=== PATIENT | female | born 1960 | race African-American/Black ===

== ENCOUNTER 2017-06-17 03:25 | Emergency (ER) | payer OTHER ==
[2017-06-17] MEDS ORDERED: Morphine 2 mg/2ml in 0.9% NaCl PF SYRINGE ONE (04:48)
[2017-06-17] MEDS ORDERED: Morphine 2 MG/ML SYRINGE ONE (04:50)
[2017-06-17 04:53] LABS: ALT (SGPT) 12 U/L (8-55); AST (SGOT) 11 U/L (5-34); Albumin 3.6 g/dL (3.5-5.0); Alkaline Phosphatase 77 U/L (40-150); Anion Gap 11 mmol/L (10-20); BUN (Urea Nitrogen) 22 mg/dL (9.8-20.1); Bilirubin, Total 0.2 mg/dL (0.2-1.2); Calc. Creatinine Clearance 0 mL/min (70-130); Calcium 9.1 mg/dL (7.8-10.44); Carbon Dioxide 24 mmol/L (22-29); Chloride 108 mmol/L (98-107); Estimated GFR-MDRD 58; Globulin 3.3 g/dL (2.4-3.5); Glucose 117 mg/dL (70-105); Potassium 3.9 mmol/L (3.5-5.1); Protein, Total 6.9 g/dL (6.0-8.3); Sodium 139 mmol/L (136-145)
[2017-06-17 04:56] LABS: #Eosinphils 0.1 thou/uL (0.0-0.7); #Lymphocytes 1.6 thou/uL (1.20-3.40); #Monocytes 0.2 thou/uL (0.11-0.59); #Neutrophils 2.5 thou/uL (1.40-6.50); %Basophils 0.7 % (0.0-1.0); %Eosinophils 2.6 % (0.0-10.0); %Lymphocytes 35.1 % (21.0-51.0); %Monocytes 5.2 % (0.0-10.0); %Neutrophils 56.5 % (42.0-75.0); CKMB 1.3 ng/mL (0-6.6); Hemoglobin 12.3 g/dL (12.0-16.0); Mean Corpuscular HGB CONC 31.9 g/dL (32.0-36.0); Mean Corpuscular Hemoglobin 26.7 pg (27.0-31.0); Mean Corpuscular Volume 83.6 fl (81.0-99.0); Mean Platelet Volume 9.1 fL (7.4-10.4); Platelet Count 215 thou/uL (130-400); RBC Distribution Width 12.7 % (11.5-14.5); Troponin I Less than 0.010 ng/mL (< 0.028); White Blood Cell (WBC) Count 4.4 thou/uL (4.8-10.8)
[2017-06-17 05:35] LABS: Bilirubin Negative (Negative); Blood, Urine Negative (Negative); Clarity CLOUDY (Clear); Glucose, Urine (Dipstick) Negative (Negative); Leukocyte Moderate (Negative); Nitrite Negative (Negative); Protein, Urine (Dipstick) Trace mg/dL (Neg-Trace); Specific Gravity, Urine 1.019 (1.002-1.036); Urobilinogen 0.2 mg/dL (0.2-1.0)
[2017-06-17 05:37] LABS: Bacteria/HPF 1+ HPF (None Seen); Hyaline Casts/LPF 0-3 HYALINE CAST LPF (0-3 Hyaline); Pathc Cast-AUWi Flag 0.13 (0-2.49); RBC/HPF 0-3 HPF (0-3); WBC/HPF 21-50 HPF (0-3)
[2017-06-17] MEDS ORDERED: Acetaminophen 500 MG TAB ONE (06:48)
--- NOTE | 2017-06-17 08:43 | CT ---
PRELIMINARY REPORT/[facility]/EMERGENCY AFTER HOURS PROCEDURE: EXAM: CT Abdomen and Pelvis With Intravenous Contrast CLINICAL HISTORY: 57 years old, female; Pain; Abdominal pain; Generalized TECHNIQUE: Axial computed tomography images of the abdomen and pelvis with intravenous contrast. Coronal reformatted images were created and reviewed. CONTRAST: 7 mL of ISOVUE administered intravenously. COMPARISON: No relevant prior studies available. FINDINGS: Lower thorax: No acute findings. ABDOMEN: Liver: Subcentimeter hypodensity posteriorly in the right lobe. Otherwise unremarkable. Gallbladder and bile ducts: Cholecystectomy. Pancreas: Normal. Spleen: Subcentimeter nonspecific splenic hypodensity. Adrenals: Normal. Kidneys and ureters: Normal. Stomach and bowel: Mild apparent mucosal prominence along the ascending and transverse colon for degr ee of distention versus adherent stool. No surrounding inflammatory changes appreciated. No evidence of obstruction. Appendix: No findings to suggest acute appendicitis. PELVIS: Bladder: Unremarkable. Reproductive: Unremarkable. ABDOMEN and PELVIS: Intraperitoneal space: No free air. No significant fluid collection. Bones/joints: Unremarkable. No acute fracture. Soft tissues: Unremarkable. Vasculature: Unremarkable. Lymph nodes: Unremarkable. No enlarged lymph nodes. IMPRESSION: Questionable mucosal prominence along the proximal colon may represent mild colitis. Otherwise unrema rkable. Thank you for allowing us to participate in the care of your patient. Dictated and Authenticated by: Nam Gr MD 06/17/2017 6:30 AM Central Time ([place] & [place]) FINAL REPORT CT ABDOMEN AND PELVIS: Date: 06/17/17 COMPARISON: 11/15/16. HISTORY: Left lower quadrant pain. FINDINGS: I agree with the preliminary report given by Topher. The imaged lung bases are unremarkable. Cholecyste ctomy clips are present. There is no free intraperitoneal air or fluid seen. The liver, spleen, pancreas, adrenal glands, and kidneys appear grossly unremarkable. No evidence for bowel obstruction. Appendix appears within normal limits. As mentioned in the preliminary [facility] report, there is questionable mucosal prominence along the proxi mal colon which may signify mild colitis. There is sigmoid diverticulosis with no evidence for signif icant diverticulitis. No acute osseous abnormality. Scattered atherosclerotic calcifications of the infrarenal abdominal ao rta noted. IMPRESSION: Questionable mild colitis. No evidence for bowel obstruction, free intraperitoneal air, or abscess. D iverticulosis of sigmoid colon noted. POS: [facility]
[2017-06-17] MEDS ORDERED: ISOVUE-370 76%-LOCM 1 ML ONE (15:39)
== END 2017-06-17 06:53 | disposition home or self-care (01) ==
LOC: ERS 03:25
DX: K52.9 Noninfective gastroenteritis and colitis, unspecified (principal); N39.0 Urinary tract infection, site not specified; E78.5 Hyperlipidemia, unspecified; I10 Essential (primary) hypertension; F32.9 Major depressive disorder, single episode, unspecified; F41.9 Anxiety disorder, unspecified; Z79.899 Other long term (current) drug therapy
CPT/HCPCS: 36415; 74177; 80053; 81003; 81015; 82553; 83605; 84484; 85025; 93005; 96374; J2270

== ENCOUNTER 2022-12-29 17:17 | Emergency (ER) | payer OTHER ==
[2022-12-29] MEDS ORDERED: Famotidine 20 MG TAB ONE (19:05)
[2022-12-29] MEDS ORDERED: methylPREDNISolone Sod Succ/PF 125 MG/2 ML VIAL ONE (19:05)
== END 2022-12-29 19:31 | disposition home or self-care (01) ==
LOC: ERS 17:17
DX: T78.40XA Allergy, unspecified, initial encounter (principal); E11.9 Type 2 diabetes mellitus without complications; E78.00 Pure hypercholesterolemia, unspecified; I10 Essential (primary) hypertension
CPT/HCPCS: 36416; 96372; 99283; J2930

== ENCOUNTER 2023-02-24 08:57 | Outpatient (CLI) | payer OTHER | END 2023-02-24 08:58 | disposition home or self-care (01) | LOC: RAD 08:57 | PROVIDERS: ATTEND Family Medicine | DX: M25.561 Pain in right knee (principal); M25.562 Pain in left knee; G89.29 Other chronic pain; M47.816 Spondylosis without myelopathy or radiculopathy, lumbar region; M17.0 Bilateral primary osteoarthritis of knee | CPT/HCPCS: 72100 ==

== ENCOUNTER 2023-05-25 11:04 | Emergency (ER) | payer OTHER ==
[2023-05-25 12:04] LABS: SARS-CoV-2 NAA Rapid Test Not Detected (NotDetected)
== END 2023-05-25 11:22 | disposition home or self-care (01) ==
LOC: ERS 11:04
DX: B34.9 Viral infection, unspecified (principal); E78.00 Pure hypercholesterolemia, unspecified; I10 Essential (primary) hypertension; E11.9 Type 2 diabetes mellitus without complications; Z79.899 Other long term (current) drug therapy
CPT/HCPCS: 99283

== ENCOUNTER 2023-07-20 08:37 | Emergency (ER) | payer MEDICAID, OTHER ==
[2023-07-20] MEDS ORDERED: Ketorolac Tromethamine 30 MG (1 mL) VIAL ONE (10:42)
[2023-07-20] MEDS ORDERED: Prochlorperazine 10 MG/2 ML VIAL ONE (10:42)
[2023-07-20] MEDS ORDERED: diphenhydrAMINE 50 MG/ML VIAL ONE (11:37)
== END 2023-07-20 08:40 | disposition home or self-care (01) ==
LOC: ERS 08:37
DX: G43.909 Migraine, unspecified, not intractable, without status migrainosus (principal); I10 Essential (primary) hypertension; E11.9 Type 2 diabetes mellitus without complications; E78.5 Hyperlipidemia, unspecified; Z79.899 Other long term (current) drug therapy; Z79.84 Long term (current) use of oral hypoglycemic drugs
CPT/HCPCS: 96374; 96375; J0780; J1200; J1885

== ENCOUNTER 2024-01-27 19:11 | Emergency (ER) | payer OTHER ==
[2024-01-27] MEDS ORDERED: Dexamethasone 10 MG/ML VIAL ONE (19:40)
[2024-01-27 20:00] LABS: #Basophils Less than 0.03 10x3/uL (0.0-0.2); %Basophils 0.2 % (0.0-1.0); %Eosinophils 0.4 % (0.0-10.0); %Lymphocytes 16.6 % (21.0-51.0); %Monocytes 5.6 % (0.0-10.0); %Neutrophils 76.8 % (42.0-75.0); Hemoglobin 13.3 g/dL (12.0-16.0); Mean Corpuscular HGB CONC 31.7 g/dL (32.0-36.0); Mean Corpuscular Hemoglobin 25.4 pg (27.0-31.0); Mean Corpuscular Volume 80.2 fL (78.0-98.0); Mean Platelet Volume 10.1 fL (7.4-10.4); Platelet Count 259 10x3/uL (130-400); RBC Distribution Width 14.1 % (11.5-14.5); Red Blood Cell (RBC) Count 5.24 mill/uL (4.20-5.40)
[2024-01-27 20:19] LABS: SARS-CoV-2 E Target Negative; SARS-CoV-2 N2 Target Negative; SARS-CoV-2 NAA Rapid Test Not Detected (NotDetected); SARS-CoV-2 RdRP gene Negative
[2024-01-27 20:22] LABS: ALT (SGPT) 14 U/L (8-55); AST (SGOT) 12 U/L (5-34); Albumin 3.6 g/dL (3.4-4.8); Alkaline Phosphatase 99 U/L (40-110); Anion Gap 16 mmol/L (10-20); BUN (Urea Nitrogen) 23 mg/dL (9.8-20.1); Bilirubin, Total 0.4 mg/dL (0.2-1.2); Calc. Creatinine Clearance 0 mL/min (70-130); Calcium 9.5 mg/dL (7.8-10.44); Carbon Dioxide 23 mmol/L (23-31); Chloride 102 mmol/L (98-107); Estimated GFR 49; Globulin 4.3 g/dL (2.4-3.5); Glucose 111 mg/dL (80-115); Potassium 3.3 mmol/L (3.5-5.1); Protein, Total 7.9 g/dL (5.8-8.1); Sodium 138 mmol/L (136-145)
== END 2024-01-27 21:24 | disposition home or self-care (01) ==
LOC: ERS 19:11
DX: R05.9 Cough, unspecified (principal); R53.1 Weakness; E11.22 Type 2 diabetes mellitus with diabetic chronic kidney disease; N18.30 Chronic kidney disease, stage 3 unspecified; I12.9 Hypertensive chronic kidney disease with stage 1 through stage 4 chronic kidney disease, or unspecified chronic kidney disease
CPT/HCPCS: 36416; 71045; 80053; 85025; J1100; U0002

== ENCOUNTER 2024-06-06 09:33 | Emergency (ER) | payer OTHER ==
[2024-06-06] MEDS ORDERED: Ketorolac Tromethamine 30 MG (1 mL) VIAL ONE (10:40)
== END 2024-06-06 11:00 | disposition home or self-care (01) ==
LOC: ERS 09:33
DX: S09.90XA Unspecified injury of head, initial encounter (principal); M54.2 Cervicalgia; M54.50 Low back pain, unspecified; E11.22 Type 2 diabetes mellitus with diabetic chronic kidney disease; I12.9 Hypertensive chronic kidney disease with stage 1 through stage 4 chronic kidney disease, or unspecified chronic kidney disease; N18.30 Chronic kidney disease, stage 3 unspecified; E78.5 Hyperlipidemia, unspecified; V89.2XXA Person injured in unspecified motor-vehicle accident, traffic, initial encounter
CPT/HCPCS: 70450; 72125; 72131; 96374; J1885

== ENCOUNTER 2024-12-07 10:28 | Day surgery (SDC) | payer OTHER ==
[2024-12-07] MEDS: Ondansetron PF 4 MG/2 ML Vial IVP PRN (11:19)
[2024-12-07] MEDS: Multivitamins, Adult 10 ML, Thiamine HCl 100 MG in Sodium Chloride 0.9% 1,000 ML IV SCH (11:19)
[2024-12-07] MEDS ORDERED: Ondansetron PF 4 MG/2 ML Vial ONE (11:19)
[2024-12-07 11:35] VITALS: BP 118/66; TEMP 98.3
== END 2024-12-07 13:30 | disposition home or self-care (01) ==
LOC: ONC/OP 10:28
PROVIDERS: ATTEND Surgery
DX: E86.0 Dehydration (principal)
CPT/HCPCS: 96365; 96366; J2405; J3411; J7030

== ENCOUNTER 2025-01-16 08:19 | Outpatient (CLI) | payer OTHER ==
[2025-01-16] MEDS ORDERED: Iopamidol 370 76% 100 ML VIAL ONE (09:54)
== END 2025-01-16 08:20 | disposition home or self-care (01) ==
LOC: CT 08:19
PROVIDERS: ATTEND Surgery
DX: R10.31 Right lower quadrant pain (principal)
CPT/HCPCS: 74177; Q9967

== ENCOUNTER 2025-01-17 10:04 | Outpatient (CLI) | payer OTHER | END 2025-01-17 10:05 | disposition home or self-care (01) | LOC: BICRAD 10:04 | PROVIDERS: ATTEND Nurse Practitioner Family | DX: R10.30 Lower abdominal pain, unspecified (principal); M47.816 Spondylosis without myelopathy or radiculopathy, lumbar region; M16.0 Bilateral primary osteoarthritis of hip | CPT/HCPCS: 72170 ==

== ENCOUNTER 2025-04-12 14:35 | Outpatient (CLI) | payer OTHER | END 2025-04-12 14:36 | disposition home or self-care (01) | LOC: BICMRI 14:35 | PROVIDERS: ATTEND Family Medicine Sports Medicine | DX: M25.551 Pain in right hip (principal); S73.101A Unspecified sprain of right hip, initial encounter; M16.11 Unilateral primary osteoarthritis, right hip ==